=== PATIENT | male | born 1985 | race Caucasian/White ===

== ENCOUNTER 2022-09-06 08:33 | Outpatient (RCR) | payer OTHER, SELFPAY | END 2022-11-22 16:38 | disposition home or self-care (01) | LOC: PT 08:33 | PROVIDERS: PCP Family Medicine; Visit Provider Personal Emergency Response Attendant | DX: Z98.890 Other specified postprocedural states (principal); M25.512 Pain in left shoulder | CPT/HCPCS: 97110; 97140; 97161 ==